=== PATIENT | male | born 1965 | race Two or more races ===

== ENCOUNTER 2020-09-01 12:13 | Emergency (ER) | payer OTHER ==
[~2020-09-01] VITALS: Ht 165.1 cm; Wt 99.2 kg
--- NOTE | 2020-09-01 12:42 | NUR ---
INTINAL CONTACT WITH PT: PT W/ C/O "LAST TUES, I HAD FEVER, TOOK TYLENOL. I HAD BODY PAIN, COUGHING. I WENT TO [facility]. TODAY THE DR TOLD ME TO COME TO THE HOSPITAL FOR IMAGING. I HAD TYPHOID FEVER A MONTH AGO IN [facility]. I CAME BACK AUGUST 20." PT WITH STEADY GAIT TO BED. POSTIONED TO COMFORT. BC. TL. AT BEDSIDE. ATTEMPTING TO USE INTERP[employer]OR SERVICES.
--- NOTE | 2020-09-01 13:16 | NUR ---
DR. MALCOLM TO BEDSIDE FOR EVALUATION.
[2020-09-01] MEDS ORDERED: SODIUM CHLORIDE FLUSH 10ML SYR IVF ONE (13:30)
--- NOTE | 2020-09-01 13:41 | NUR ---
LAB/AT BEDSIDE. Addendum: 09/01/20 at 1341 by [facility]/RAD AT BEDSIDE.
[2020-09-01 13:43] LABS: BASOPHILS % (AUTO) 1 % (0-1); EOSINOPHILS % (AUTO) 0 % (1-7); LYMPHOCYTES % (AUTO) 42 % (22-44); MEAN CORPUSCULAR HEMOGLOBIN 22.8 pg (27.5-34.5); MEAN CORPUSCULAR HGB CONC 32.4 g/dL (33.2-36.2); MEAN PLATELET VOLUME 7.5 fL (7.4-10.4); MONOCYTES % (AUTO) 10 % (2-9); NEUTROPHILS % (AUTO) 47 % (42-75); PLATELET COUNT 258 x10^3/uL (130-400); RED CELL DISTRIBUTION WIDTH 15.3 % (9.4-14.8)
[2020-09-01 13:54] LABS: ALANINE AMINOTRANSFERASE 90 U/L (12-78); ALBUMIN 3.5 g/dL (3.4-5.0); ANION GAP 7 mmol/L (5-15); CALCIUM 8.8 mg/dL (8.5-10.1); CHLORIDE 102 mmol/L (98-107); CREATININE 0.97 mg/dL (0.7-1.3)
[2020-09-01 14:01] LABS: ALKALINE PHOSPHATASE 148 U/L (45-117); BILIRUBIN,TOTAL 0.4 mg/dL (0.2-1.0); MICROSCOPIC NOT IND; TOTAL PROTEIN 8.1 g/dL (6.4-8.2)
[2020-09-01] MEDS ORDERED: ACETAMINOPHEN 500 MG TABLET ONE (15:29)
[2020-09-01] MEDS ORDERED: ACETAMINOPHEN 500 MG TABLET PO ONE (15:30)
--- NOTE | 2020-09-01 15:44 | NUR ---
PT MEDICATED PER EMAR. VSS. MIRNAN.
--- NOTE | 2020-09-01 16:18 | NUR ---
PT MEDICATED PER EMAR. VSS. MIRNAN.
[2020-09-01] MEDS ORDERED: CEFTRIAXONE 2 GM in DEXTROSE 5% 50 ML IVPB ONE (16:30)
--- NOTE | 2020-09-01 17:12 | NUR ---
CARE FOR DC ONLY PROVIDED. PT SITTING ON CHAIR DRESSED AND READY TO GO. DC INSTRUCTIONS GIVEN TO PT BY KISHOR Valentine RN. UNDERSTANDING VERBALIZED. VERIFIED WITH PRIMARY RN, PT IV HAD BEEN DC'D. PT LEFT AMB, GAIT STEADY.
[2020-09-01 17:13] VITALS: BP 125/78
== END 2020-09-01 17:15 | disposition home or self-care (01) ==
LOC: ED 12:58
DX: R50.9 Fever, unspecified (principal); E11.9 Type 2 diabetes mellitus without complications; E78.5 Hyperlipidemia, unspecified
CPT/HCPCS: 36415; 71045; 80053; 81003; 83605; 84145; 85025; 85651; 86140; 87040; 96365; 99285; J0696

== ENCOUNTER 2020-09-03 20:18 | Inpatient (IN) | payer OTHER ==
[~2020-09-03] VITALS: Ht 170.2 cm; Wt 96.0 kg
[2020-09-03 21:59] LABS: HCT (SEDRATE) 40.9 % (39.2-51.8)
[2020-09-03 22:04] LABS: BASOPHILS % (AUTO) 1 % (0-1); EOSINOPHILS % (AUTO) 0 % (1-7); LYMPHOCYTES % (AUTO) 33 % (22-44); MEAN CORPUSCULAR HEMOGLOBIN 22.6 pg (27.5-34.5); MEAN CORPUSCULAR HGB CONC 31.8 g/dL (33.2-36.2); MEAN PLATELET VOLUME 7.7 fL (7.4-10.4); MONOCYTES % (AUTO) 9 % (2-9); NEUTROPHILS % (AUTO) 57 % (42-75); PLATELET COUNT 265 x10^3/uL (130-400); RED BLOOD COUNT 5.89 x10^6/uL (4.38-5.82); RED CELL DISTRIBUTION WIDTH 15.4 % (9.4-14.8)
[2020-09-03 22:12] LABS: ALBUMIN 3.4 g/dL (3.4-5.0); ANION GAP 3 mmol/L (5-15); CHLORIDE 104 mmol/L (98-107)
[2020-09-03] MEDS ORDERED: CEFTRIAXONE 2 GM in DEXTROSE 5% 50 ML IVPB ONE (23:30)
[2020-09-04 01:50] VITALS: BP 145/84
[2020-09-04] MEDS ORDERED: PHARMACY MAY ADJ FOR RENAL FX MC SCH (04:30)
[2020-09-04] MEDS ORDERED: ONDANSETRON 2MG/ML, 2ML IV PRN (04:30)
[2020-09-04] MEDS ORDERED: POLYETHYLENE GLYCOL 17 GM PACKET PO PRN (04:30)
[2020-09-04] MEDS: ENOXAPARIN 40 MG/0.4 ML SQ SCH (05:27)
[2020-09-04 06:23] LABS: BASOPHILS % (AUTO) 1 % (0-1); EOSINOPHILS % (AUTO) 0 % (1-7); LYMPHOCYTES % (AUTO) 32 % (22-44); MEAN CORPUSCULAR HEMOGLOBIN 22.6 pg (27.5-34.5); MEAN CORPUSCULAR HGB CONC 32.2 g/dL (33.2-36.2); MEAN PLATELET VOLUME 7.4 fL (7.4-10.4); MONOCYTES % (AUTO) 9 % (2-9); NEUTROPHILS % (AUTO) 58 % (42-75); PLATELET COUNT 258 x10^3/uL (130-400); RED BLOOD COUNT 5.49 x10^6/uL (4.38-5.82); RED CELL DISTRIBUTION WIDTH 15.3 % (9.4-14.8)
[2020-09-04 06:33] LABS: ALANINE AMINOTRANSFERASE 77 U/L (12-78); ANION GAP 6 mmol/L (5-15); CALCIUM 8.5 mg/dL (8.5-10.1); CHLORIDE 104 mmol/L (98-107)
[2020-09-04 06:35] VITALS: BP 116/76
[2020-09-04 06:49] LABS: ALKALINE PHOSPHATASE 135 U/L (45-117); BILIRUBIN,TOTAL 0.3 mg/dL (0.2-1.0); TOTAL PROTEIN 7.2 g/dL (6.4-8.2)
[2020-09-04] MEDS: ACETAMINOPHEN 325 MG TABLET PO PRN ×2 (07:40→20:17)
[2020-09-04 12:44] VITALS: BP 114/77
[2020-09-04] MEDS ORDERED: METF-734 PO (17:11)
[2020-09-04] MEDS ORDERED: ATOR10TA9 PO (17:11)
[2020-09-04 19:50] VITALS: BP 142/90
[2020-09-04] MEDS: CEFTRIAXONE 2 GM in DEXTROSE 5% 50 ML IVPB SCH (23:45)
[2020-09-05 01:07] VITALS: BP 116/71
[2020-09-05 05:54] LABS: BASOPHILS % (AUTO) 1 % (0-1); EOSINOPHILS % (AUTO) 0 % (1-7); LYMPHOCYTES % (AUTO) 29 % (22-44); MEAN CORPUSCULAR HEMOGLOBIN 22.7 pg (27.5-34.5); MEAN CORPUSCULAR HGB CONC 32.6 g/dL (33.2-36.2); MEAN PLATELET VOLUME 7.4 fL (7.4-10.4); MONOCYTES % (AUTO) 11 % (2-9); NEUTROPHILS % (AUTO) 58 % (42-75); PLATELET COUNT 263 x10^3/uL (130-400); RED BLOOD COUNT 5.71 x10^6/uL (4.38-5.82)
[2020-09-05] MEDS: ENOXAPARIN 40 MG/0.4 ML SQ SCH (06:00)
[2020-09-05 06:03] LABS: ANION GAP 4 mmol/L (5-15); CALCIUM 8.3 mg/dL (8.5-10.1); CHLORIDE 104 mmol/L (98-107); CREATININE 0.79 mg/dL (0.7-1.3); IRON LEVEL 24 mcg/dL (65-175)
[2020-09-05] MEDS: ACETAMINOPHEN 325 MG TABLET PO PRN ×2 (06:05→20:44)
[2020-09-05 06:06] LABS: % IRON SATURATION 13 % (20-55); ALANINE AMINOTRANSFERASE 73 U/L (12-78); ALKALINE PHOSPHATASE 135 U/L (45-117); BILIRUBIN,TOTAL 0.3 mg/dL (0.2-1.0); TOTAL IRON BINDING CAPACITY 185 mcg/dL (250-450); TOTAL PROTEIN 7.3 g/dL (6.4-8.2); TRANSFERRIN 148 mg/dL (200-360)
[2020-09-05 08:15] VITALS: BP 121/74
[2020-09-05] MEDS: FERROUS GLUCONATE 324 MG TABLET PO SCH ×2 (09:12→16:43)
[2020-09-05] MEDS: metFORMIN 500 MG TABLET PO SCH ×2 (09:12→16:43)
[2020-09-05 13:24] VITALS: BP 118/75
[2020-09-05 20:27] VITALS: BP 135/80
[2020-09-05] MEDS ORDERED: ATORVASTATIN 10 MG TABLET PO SCH (21:00)
[2020-09-05] MEDS: CEFTRIAXONE 2 GM in DEXTROSE 5% 50 ML IVPB SCH (23:26)
[2020-09-06 00:37] VITALS: BP_SYST 100; BP_SYST 98; BP_DIAS 64; BP_DIAS 68
[2020-09-06] MEDS: ENOXAPARIN 40 MG/0.4 ML SQ SCH (05:17)
[2020-09-06] MEDS: ACETAMINOPHEN 325 MG TABLET PO PRN ×2 (05:17→19:16)
[2020-09-06 05:49] LABS: BASOPHILS % (AUTO) 1 % (0-1); EOSINOPHILS % (AUTO) 0 % (1-7); LYMPHOCYTES % (AUTO) 34 % (22-44); MEAN CORPUSCULAR HEMOGLOBIN 22.7 pg (27.5-34.5); MEAN PLATELET VOLUME 7.5 fL (7.4-10.4); MONOCYTES % (AUTO) 11 % (2-9); NEUTROPHILS % (AUTO) 54 % (42-75); PLATELET COUNT 272 x10^3/uL (130-400); RED BLOOD COUNT 5.79 x10^6/uL (4.38-5.82); RED CELL DISTRIBUTION WIDTH 15.1 % (9.4-14.8)
[2020-09-06 05:51] LABS: HCT (SEDRATE) 40.2 % (39.2-51.8)
[2020-09-06 05:52] LABS: ALANINE AMINOTRANSFERASE 72 U/L (12-78); ALBUMIN 2.9 g/dL (3.4-5.0); ANION GAP 2 mmol/L (5-15); CALCIUM 8.6 mg/dL (8.5-10.1); CHLORIDE 105 mmol/L (98-107); CREATININE 0.78 mg/dL (0.7-1.3)
[2020-09-06 06:01] LABS: ALKALINE PHOSPHATASE 141 U/L (45-117); BILIRUBIN,TOTAL 0.3 mg/dL (0.2-1.0); TOTAL PROTEIN 7.2 g/dL (6.4-8.2)
[2020-09-06] MEDS: metFORMIN 500 MG TABLET PO SCH ×2 (08:00→17:27)
[2020-09-06] MEDS: FERROUS GLUCONATE 324 MG TABLET PO SCH ×2 (08:24→17:27)
[2020-09-06 08:30] VITALS: BP 109/72
[2020-09-06 13:25] VITALS: BP 127/78
[2020-09-06 18:37] LABS: BLD PARASITE SMEAR NO ORGANISMS SEEN (NONE SEEN)
[2020-09-06 19:08] VITALS: BP 132/81
[2020-09-06] MEDS: ATORVASTATIN 10 MG TABLET PO SCH (20:12)
[2020-09-06] MEDS: CEFTRIAXONE 2 GM in DEXTROSE 5% 50 ML IVPB SCH (22:55)
[2020-09-07 01:22] VITALS: BP 127/83
[2020-09-07] MEDS: ENOXAPARIN 40 MG/0.4 ML SQ SCH (04:24)
[2020-09-07 05:55] LABS: BASOPHILS % (AUTO) 1 % (0-1); EOSINOPHILS % (AUTO) 0 % (1-7); LYMPHOCYTES % (AUTO) 33 % (22-44); MEAN CORPUSCULAR HEMOGLOBIN 22.3 pg (27.5-34.5); MEAN PLATELET VOLUME 7.4 fL (7.4-10.4); MONOCYTES % (AUTO) 10 % (2-9); NEUTROPHILS % (AUTO) 55 % (42-75); PLATELET COUNT 283 x10^3/uL (130-400); RED BLOOD COUNT 5.52 x10^6/uL (4.38-5.82)
[2020-09-07 06:05] LABS: ALANINE AMINOTRANSFERASE 72 U/L (12-78); ALBUMIN 2.9 g/dL (3.4-5.0); ANION GAP 5 mmol/L (5-15); CALCIUM 8.5 mg/dL (8.5-10.1); CHLORIDE 104 mmol/L (98-107); CREATININE 0.81 mg/dL (0.7-1.3)
[2020-09-07 06:08] LABS: ALKALINE PHOSPHATASE 144 U/L (45-117); BILIRUBIN,TOTAL 0.3 mg/dL (0.2-1.0); TOTAL PROTEIN 7.2 g/dL (6.4-8.2)
[2020-09-07 06:59] VITALS: BP 117/76
[2020-09-07] MEDS: ACETAMINOPHEN 325 MG TABLET PO PRN ×2 (07:54→19:41)
[2020-09-07] MEDS: metFORMIN 500 MG TABLET PO SCH ×2 (07:54→17:32)
[2020-09-07] MEDS: FERROUS GLUCONATE 324 MG TABLET PO SCH ×2 (07:54→17:31)
[2020-09-07 13:12] VITALS: BP 109/73
[2020-09-07] MEDS: GUAIFENESIN/COD200MG-20MG/10ML LIQUID PO PRN (17:34)
[2020-09-07 19:24] VITALS: BP 135/82
[2020-09-07] MEDS: ATORVASTATIN 10 MG TABLET PO SCH (21:06)
[2020-09-07] MEDS ORDERED: OMNIPAQUE 350 MG/ML, 75ML BOTTLE ONE (22:43)
[2020-09-07] MEDS: CEFTRIAXONE 2 GM in DEXTROSE 5% 50 ML IVPB SCH (23:34)
[2020-09-08 01:10] VITALS: BP 101/60
[2020-09-08] MEDS: GUAIFENESIN/COD200MG-20MG/10ML LIQUID PO PRN (04:55)
[2020-09-08] MEDS: ENOXAPARIN 40 MG/0.4 ML SQ SCH (04:55)
[2020-09-08 08:45] VITALS: BP 108/73
[2020-09-08] MEDS: metFORMIN 500 MG TABLET PO SCH ×2 (10:08→18:20)
[2020-09-08] MEDS: ATORVASTATIN 10 MG TABLET PO SCH (10:08)
[2020-09-08] MEDS: FERROUS GLUCONATE 324 MG TABLET PO SCH ×2 (10:08→18:20)
[2020-09-08 14:06] VITALS: BP 125/77
[2020-09-08 19:29] VITALS: BP 120/77
[2020-09-08] MEDS: ACETAMINOPHEN 325 MG TABLET PO PRN (21:52)
[2020-09-08] MEDS: CEFTRIAXONE 2 GM in DEXTROSE 5% 50 ML IVPB SCH (23:42)
[2020-09-09 00:50] VITALS: BP 105/69
[2020-09-09] MEDS: ENOXAPARIN 40 MG/0.4 ML SQ SCH (04:59)
[2020-09-09 06:25] VITALS: BP 112/74
[2020-09-09] MEDS: FERROUS GLUCONATE 324 MG TABLET PO SCH ×2 (09:12→17:05)
[2020-09-09] MEDS: ATORVASTATIN 10 MG TABLET PO SCH (09:12)
[2020-09-09] MEDS: metFORMIN 500 MG TABLET PO SCH ×2 (09:13→17:05)
[2020-09-09 12:42] VITALS: BP 119/76
[2020-09-09] MEDS: GUAIFENESIN/COD200MG-20MG/10ML LIQUID PO PRN (15:03)
[2020-09-09] MEDS ORDERED: CEFT2FRO2 IV (15:19)
[2020-09-09] MEDS ORDERED: CEFTRIAXONE 2 GM in DEXTROSE 5% 50 ML IVPB SCH (15:30)
== END 2020-09-09 22:09 | disposition home or self-care (01) | DRG 872 ==
LOC: ED 23:42 → EDIP 09-04 00:41 → 3N 09-04 01:52
PROVIDERS: ADMIT Internal Medicine; ATTEND Internal Medicine
PROC: 02HV33Z Insertion of Infusion Device into Superior Vena Cava, Percutaneous Approach (ICD-10-PCS; principal; 2020-09-09)
PROC: B5181ZA Fluoroscopy of Superior Vena Cava using Low Osmolar Contrast, Guidance (ICD-10-PCS; 2020-09-09)
PROC: B54CZZA Ultrasonography of Left Lower Extremity Veins, Guidance (ICD-10-PCS; 2020-09-09)
DX: A41.50 Gram-negative sepsis, unspecified (principal); A68.9 Relapsing fever, unspecified; E87.1 Hypo-osmolality and hyponatremia; D50.9 Iron deficiency anemia, unspecified; D63.8 Anemia in other chronic diseases classified elsewhere; E11.65 Type 2 diabetes mellitus with hyperglycemia; E78.5 Hyperlipidemia, unspecified
CPT/HCPCS: 36415; 36573; 71045; 71260; 76705; 80048; 80053; 82040; 82728; 83036; 83540; 83550; 83735; 84145; 84466; 85025; 85651; 86140; 86790; 87040; 87207; 87486; 87581; 87633; 87798; 93306; 96365; G0378; J0696; J1650; Q9967; C1751

== ENCOUNTER 2020-09-17 23:10 | Emergency (ER) | payer OTHER ==
[~2020-09-17] VITALS: Ht 162.6 cm; Wt 96.4 kg
[~2020-09-17 23:10] MED LIST: ATOR10TA9 PO; CEFT2FRO2 IV; METF-734 PO
[2020-09-17] MEDS ORDERED: SODIUM CHLORIDE FLUSH 10ML SYR IVF ONE (23:30)
[2020-09-17] MEDS ORDERED: SODIUM CHLORIDE 0.9% 1,000ML IVBOLUS ONE (23:30)
[2020-09-17] MEDS ORDERED: ACETAMINOPHEN 325 MG TABLET PO ONE (23:30)
--- NOTE | 2020-09-17 23:30 | NUR ---
Pt presents to ed with fever since 1600. pt in gown, resting on gurney, and placed on continuous monitoring.
[2020-09-17] MEDS ORDERED: ACETAMINOPHEN 325 MG TABLET ONE (23:34)
--- NOTE | 2020-09-18 | NUR ---
pt resting on gurney, denies needs at this time.
[2020-09-18 00:07] LABS: ALANINE AMINOTRANSFERASE 59 U/L (12-78); ANION GAP 7 mmol/L (5-15); CALCIUM 8.9 mg/dL (8.5-10.1); CHLORIDE 102 mmol/L (98-107); CREATININE 0.98 mg/dL (0.7-1.3)
[2020-09-18 00:09] LABS: ALKALINE PHOSPHATASE 154 U/L (45-117); BILIRUBIN,TOTAL 0.3 mg/dL (0.2-1.0); TOTAL PROTEIN 7.7 g/dL (6.4-8.2)
[2020-09-18 00:18] LABS: BASOPHILS % (AUTO) 1 % (0-1); EOSINOPHILS % (AUTO) 0 % (1-7); LYMPHOCYTES % (AUTO) 35 % (22-44); MEAN CORPUSCULAR HEMOGLOBIN 22.5 pg (27.5-34.5); MEAN CORPUSCULAR HGB CONC 31.8 g/dL (33.2-36.2); MEAN PLATELET VOLUME 7.4 fL (7.4-10.4); MONOCYTES % (AUTO) 8 % (2-9); NEUTROPHILS % (AUTO) 56 % (42-75); PLATELET COUNT 314 x10^3/uL (130-400); RED BLOOD COUNT 5.57 x10^6/uL (4.38-5.82); RED CELL DISTRIBUTION WIDTH 15.4 % (9.4-14.8)
[2020-09-18 01:00] VITALS: BP 126/78
--- NOTE | 2020-09-18 01:00 | NUR ---
erp at bedside with sao tomean interuptor.
== END 2020-09-18 01:40 | disposition home or self-care (01) ==
LOC: ED 23:50
DX: R50.9 Fever, unspecified (principal); E78.5 Hyperlipidemia, unspecified
CPT/HCPCS: 36415; 71045; 80053; 83605; 84145; 85025; 87040; 99284; J7030